=== PATIENT | male | born 1990 | race Caucasian/White ===

== ENCOUNTER 2017-04-28 11:39 | Emergency (ER) | payer OTHER ==
[2017-04-28 13:36] VITALS: BP 136/81
--- NOTE | 2017-04-28 13:52 | UC ---
Respiratory Complaint HPI - HPI Summary HPI Summary: 27 yo female with >2 week hx of cough/sinus pressure/post nasal drip symptoms progressively worsening no f/c no n/v/d - History of Current Complaint Chief Complaint: UCRespiratory Stated Complaint: EAR/SINUS COMPLAINT Time Seen by Provider: 04/28/17 13:42 Hx Obtained From: Patient Onset/Duration: Gradual Onset Timing: Constant Severity Initially: Moderate Severity Currently: Moderate Pain Intensity: 5 Pain Scale Used: 0-10 Numeric Character: Cough: Nonproductive Aggravating Factors: Nothing Associated Signs And Symptoms: Positive: Nasal Congestion, Hoarseness, Sinus Discomfort. Negative: Fever, Chills - Allergies/Home Medications Allergies/Adverse Reactions: Allergies Allergy/AdvReac Type Severity Reaction Status Date / Time No Known Allergies Allergy Verified 04/28/17 13:31 Home Medications: Home Medications guaiFENesin [Mucinex] 600 mg PO BID PRN 04/28/17 [History Confirmed 04/28/17] PMH/Surg Hx/FS Hx/Imm Hx Previously Healthy: Yes - Surgical History Surgical History: Yes Surgery Procedure, Year, and Place: appy. shoulder - Family History Known Family History: Negative: Cardiac Disease, Hypertension, Diabetes - Social History Alcohol Use: Occasionally Substance Use Type: None Smoking Status (MU): Never Smoked Tobacco Review of Systems Constitutional: Negative Skin: Negative Eyes: Negative ENT: Dental Pain, Nasal Discharge, Sinus Congestion, Sinus Pain/Tenderness Respiratory: Cough Cardiovascular: Negative Gastrointestinal: Negative Genitourinary: Negative Motor: Negative Neurovascular: Negative Musculoskeletal: Negative Neurological: Negative Psychological: Negative Is Patient Immunocompromised?: No All Other Systems Reviewed And Are Negative: Yes Physical Exam Triage Information Reviewed: Yes Appearance: Well-Appearing, No Pain Distress, Well-Nourished Vital Signs: Initial Vital Signs Temp 98 F 04/28/17 13:32 Pulse 71 04/28/17 13:32 Resp 18 04/28/17 13:32 BP 136/81 04/28/17 13:32 Pulse Ox 99 04/28/17 13:32 Vital Signs Reviewed: Yes Eyes: Positive: Conjunctiva Clear ENT: Positive: Dental tenderness, Sinus tenderness, Uvula midline. Negative: Hearing grossly normal, Nasal congestion, TMs normal, Muffled voice Neck: Positive: Supple, Nontender, No Lymphadenopathy Respiratory: Positive: Lungs clear, Normal breath sounds, No respiratory distress, No accessory muscle use Cardiovascular: Positive: RRR, No Murmur, Pulses Normal Musculoskeletal: Positive: ROM Intact, No Edema Neurological: Positive: Alert Psychological Exam: Normal Skin Exam: Normal UC Diagnostic Evaluation - Laboratory O2 Sat by Pulse Oximetry: 99 - normal/not hypoxic Respiratory Course/Dx - Differential Dx/Diagnosis Provider Diagnoses: acute sinusitis Discharge - Discharge Plan Condition: Stable Disposition: HOME Prescriptions: Amoxicillin PO (*) [Amoxicillin 875 MG (*)] 875 mg PO BID #20 tab Patient Education Materials: Sinusitis (ED) Referrals: GALINA Espino [Primary Care Provider] - 1 Week (if not better) Additional Instructions: warm facial compresses saline nasal spray twice daily recheck for new or worsening symptoms
== END 2017-04-28 14:24 | disposition home or self-care (01) ==
LOC: UCCORT 11:39
DX: J01.90 Acute sinusitis, unspecified (principal)
CPT/HCPCS: 99202; G0463